=== PATIENT | female | born 2000 | race African-American/Black ===

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

== ENCOUNTER 2021-11-21 10:30 | Emergency (ER) | payer SELFPAY ==
[~2021-11-21] VITALS: Ht 165.1 cm; Wt 58.0 kg
[2021-11-21 13:40] VITALS: BP 127/94
[2021-11-21 13:41] LABS: BILIRUBIN,URINE NEGATIVE (NEG); CLARITY,URINE CLOUDY; COLOR,URINE YELLOW; NITRITE,URINE NEGATIVE (NEG); PROTEIN,URINE NEGATIVE (NEG-TRACE)
--- NOTE | 2021-11-21 13:46 | PHYS DOC ---
Past Medical History Past Medical History: Other Additional Past Medical Histor: scoliosis+ Past Surgical History: Other Additional Past Surgical Histo: back surgery for scoliosis Smoking Status: Never Smoker Alcohol Use: None Drug Use: None General Adult EDM: Chief Complaint: ABDOMINAL PAIN HPI: HPI: Patient is a 20-year-old female who presents to the emergency department today for left lower quadrant cramping that started 2 weeks ago. She rates the pain 7 out of 10. Pain is worse after eating. No treatment prior to arrival. Patient denies any nausea, vomiting, diarrhea, dysuria, urgency, flank pain, blood in her stools, vaginal bleeding or discharge. She is reporting urinary frequency. Last bowel movement was Friday and patient does have a history of constipation. Patient does have a Nexplanon and does not experience menstrual periods. Review of Systems: Review of Systems: GI: See HPI : See HPI Musculoskeletal: See HPI Heart Score: C/O Chest Pain: N/A Risk Factors: Risk Factors: DM, Current or recent (<one month) smoker, HTN, HLP, family history of CAD, obesity. Risk Scores: Score 0 - 3: 2.5% MACE over next 6 weeks - Discharge Home Score 4 - 6: 20.3% MACE over next 6 weeks - Admit for Clinical Observation Score 7 - 10: 72.7% MACE over next 6 weeks - Early Invasive Strategies Current Medications: Current Medications Medications (Trade) Dose Ordered Sig/Paras Start Time Stop Time Status Last Admin Dose Admin Dicyclomine HCl (Bentyl) 10 mg 1X ONCE 11/21/21 13:30 11/21/21 13:33 DC Sodium Chloride 1,000 ml @ 1,000 mls/hr Q1H 11/21/21 13:30 11/21/21 14:29 Allergies: Allergies: Allergies Coded Allergies Type Severity Reaction Last Updated Verified No Known Drug Allergies 05/04/17 No Physical Exam: PE: Constitutional: Well developed, well nourished, no acute distress, non-toxic appearance. [] HENT: Normocephalic, atraumatic, bilateral external ears normal, oropharynx moist, no oral exudates, nose normal. [] Eyes: PERRL, EOMI, conjunctiva normal, no discharge. [] Neck: Normal range of motion, no tenderness, supple, no stridor. [] Cardiovascular:Heart rate regular rhythm, no murmur [] Lungs & Thorax: Bilateral breath sounds clear to auscultation [] Abdomen: Bowel sounds normal, soft, no abdominal rigidity or guarding, mild tenderness noted with palpation to left lower quadrant, negative McBurney's point tenderness, negative Valencia sign, no masses, no pulsatile masses. [] Skin: Warm, dry, no erythema, no rash. [] Back: No tenderness, no CVA tenderness. [] Extremities: No tenderness, no cyanosis, no clubbing, ROM intact, no edema. [] Neurologic: Alert and oriented X 3, normal motor function, normal sensory function, no focal deficits noted. [] Psychologic: Affect normal, judgement normal, mood normal. [] Current Patient Data: Labs: Laboratory Tests Test 11/21/21 13:29 11/21/21 13:34 11/21/21 13:46 Urine Collection Type Unknown Urine Color Yellow Urine Clarity Cloudy Urine pH 6.0 Urine Specific [place] 1.025 Urine Protein Negative mg/dL Urine Glucose (UA) Negative mg/dL Urine Ketones (Stick) Negative mg/dL Urine Blood Negative Urine Nitrite Negative Urine Bilirubin Negative Urine Urobilinogen Dipstick 1.0 mg/dL Urine Leukocyte Esterase Trace Urine RBC 0 /HPF Urine WBC 1-4 /HPF Urine Squamous Epithelial Cells Many /LPF Urine Bacteria Many /HPF Urine Mucus Marked /LPF Bedside Urine HCG, Qualitative Hcg negative White Blood Count 10.7 x10^3/uL Red Blood Count 4.24 x10^6/uL Hemoglobin 13.4 g/dL Hematocrit 38.5 % Mean Corpuscular Volume 91 fL Mean Corpuscular Hemoglobin 32 pg Mean Corpuscular Hemoglobin Concent 35 g/dL Red Cell Distribution Width 12.6 % Platelet Count 363 x10^3/uL Neutrophils (%) (Auto) 65 % Lymphocytes (%) (Auto) 29 % Monocytes (%) (Auto) 5 % Eosinophils (%) (Auto) 1 % Basophils (%) (Auto) 1 % Neutrophils # (Auto) 7.0 x10^3/uL Lymphocytes # (Auto) 3.1 x10^3/uL Monocytes # (Auto) 0.5 x10^3/uL Eosinophils # (Auto) 0.1 x10^3/uL Basophils # (Auto) 0.1 x10^3/uL Sodium Level 139 mmol/L Potassium Level 3.6 mmol/L Chloride Level 106 mmol/L Carbon Dioxide Level 25 mmol/L Anion Gap 8 Blood Urea Nitrogen 9 mg/dL Creatinine 0.7 mg/dL Estimated GFR (Cockcroft-Gault) 129.1 BUN/Creatinine Ratio 13 Glucose Level 77 mg/dL Calcium Level 8.8 mg/dL Total Bilirubin 0.2 mg/dL Aspartate Amino Transf (AST/SGOT) 19 U/L Alanine Aminotransferase (ALT/SGPT) 27 U/L Alkaline Phosphatase 90 U/L Total Protein 8.0 g/dL Albumin 3.7 g/dL Albumin/Globulin Ratio 0.9 Lipase 100 U/L Current Medications Medications (Trade) Dose Ordered Sig/Paras Route PRN Reason Start Time Stop Time Status Last Admin Dose Admin Sodium Chloride 1,000 ml @ 1,000 mls/hr Q1H IV 11/21/21 13:30 11/21/21 14:29 DC 11/21/21 14:25 Dicyclomine HCl (Bentyl) 10 mg 1X ONCE IM 11/21/21 13:30 11/21/21 13:33 DC 11/21/21 14:24 Iohexol (Omnipaque 300 Mg/ml) 75 ml 1X ONCE IV 11/21/21 14:45 11/21/21 14:46 DC 11/21/21 14:56 Info (CONTRAST GIVEN -- Rx MONITORING) 1 each PRN DAILY PRN MC SEE COMMENTS 11/21/21 14:45 11/23/21 14:44 Laboratory Tests Test 11/21/21 13:34 POC Urine HCG, Qualitative Hcg negative (Negative) EKG: EKG: [] Radiology/Procedures: Radiology/Procedures: []PROCEDURE: CT ABD PELV W/ IV CONTRST ONLY Study: CT abdomen/pelvis with intravenous contrast Indication: Left lower quadrant pain. Comparison: None. Technique: Helical CT imaging performed of the abdomen and pelvis after the intravenous administration of 75 cc Omnipaque 300 contrast. Sagittal and coronal reformats were obtained. One or more of the following individualized dose reduction techniques were utilized for this examination: 1. Automated exposure control 2. Adjustment of the mA and/or kV according to patient size 3. Use of iterative reconstruction technique. Findings: Chest: No significant finding. Liver: Unremarkable. Gallbladder/Biliary Tree: No CT manifestations of cholecystitis. Within normal limits biliary tree. Pancreas: Homogeneous parenchymal attenuation. Spleen: Within normal limits for size. Adrenal Glands: Normal morphology. Kidneys/Ureters/Bladder: Essentially symmetric renal parenchymal enhancement considering streak artifact from spinal hardware. Excretion of contrast into the collecting system. No hydronephrosis. The bladder is unremarkable. There is likely a small amount of excreted contrast layering dependently within the bladder. Reproductive Organs: There appears to be fluid within the vaginal fornices, coronal image 26. Endometrial thickening. Retroverted uterus. Right ovarian cystic focus measuring up to 4.2 x 2.7 x 4.3 cm. This exhibits simple internal density. Small cystic area at the left adnexa, coronal image 27 series 4, also measuring near simple density and up to a centimeter in size. Colon: Mild constipation. Appendix: Unremarkable as seen on image 63 series 2. Small Bowel: No pathologic dilatation. Stomach: Unremarkable. Vasculature: Within normal limits. Lymph Nodes: Unremarkable. Peritoneum and Body Wall: There may be trace free fluid within the deep pelvis. Bones: Levocurvature centered at the thoracolumbar junction. Partially imaged dorsal thoracolumbar fusion construct extending down to L3. The visualized hardware is intact. Miscellaneous: None. Impression: 1. Simple density right ovarian cystic focus measuring up to 4.3 cm. Smaller left adnexal cystic area measuring up to a centimeter. Thickened endometrium and possible fluid within the vaginal fornices. The findings may all be physiologic considering patient age. If further evaluation is needed based on patient's symptoms dedicated pelvic ultrasound could be performed. 2. Mild constipation. Electronically signed by: EARNEST THOMAS MD (11/21/2021 3:21 PM) [facility] DICTATED and SIGNED BY: EARNEST THOMAS MD DATE: 11/21/21 [id number] 0 Course & Med Decision Making: Course & Med Decision Making Pertinent Labs and Imaging studies reviewed. (See chart for details) Patient's blood work was unremarkable. Urinalysis did show urinary tract infection she will be treated with an antibiotic. Patient CT scan of her abdomen and pelvis shows an ovarian cyst bilaterally and constipation but no other acute findings. Patient advised to take MiraLAX daily. She was advised to increase fluids and avoid bladder irritants. I discussed with patient all findings and diagnostic testing as well as the need to follow-up with PCP for further evaluation and treatment or return to the ER if any new or worsening symptoms. Strict return precautions were also discussed at length. Patient voiced understanding and agreement with the plan. Patient is hemodynamically stable at the time of disposition. Hakan Disclaimer: Hakan Disclaimer: This electronic medical record was generated, in whole or in part, using a voice recognition dictation system. Departure Departure Impression: Primary Impression: Urinary tract infection Qualified Codes: N30.00 - Acute cystitis without hematuria Additional Impression: Constipation Qualified Codes: K59.00 - Constipation, unspecified Disposition: HOME / SELF CARE / HOMELESS Condition: GOOD Referrals: NO PCP (PCP) Patient Instructions: Constipation, Adult, [id number], Urinary Tract Infection Additional Instructions: You were seen in the emergency department today for abdominal pain. Your urinalysis did show urinary tract infection you will be treated with an antibiotic. Please start and finish the antibiotic completely. Your blood work was unremarkable. The scan of your abdomen and pelvis did show some ovarian cyst bilaterally which are physiological but no acute findings and some constipation. Please add MiraLAX daily to help with your constipation. Increase your fluids and avoid any bladder irritants like caffeine, sugary beverages or alcohol. Follow-up with your primary care provider tomorrow regarding your ER visit. Please return to the emergency department if you develop worsening of your abdominal pain, intractable nausea or vomiting, high fevers refractory to treatment. Scripts Cephalexin (CEPHALEXIN) 500 Mg Tablet 1 TAB PO BID for 7 Days, #14 TAB 0 Refills Prov: KINSEY MEDINA APRN 11/21/21 KINSEY MEDINA APRN Nov 21, 2021 13:46
[2021-11-21 13:51] LABS: BACTERIA,URINE MANY /HPF (0-FEW); RBC,URINE 0 /HPF (0-2)
[2021-11-21 13:58] LABS: BASO # 0.1 x10^3/uL (0.0-0.2); BASO % 1 % (0-3); EOS # 0.1 x10^3/uL (0.0-0.7); EOS % 1 % (0-3); HEMATOCRIT 38.5 % (36.0-47.0); HEMOGLOBIN 13.4 g/dL (12.0-15.5); LYMPH # 3.1 x10^3/uL (1.0-4.8); LYMPH % 29 % (24-48); MEAN CORPUSCULAR HEMOGLOBIN 32 pg (25-35); MEAN CORPUSCULAR HGB CONC 35 g/dL (31-37); MEAN CORPUSCULAR VOLUME 91 fL (79-100); MONO # 0.5 x10^3/uL (0.0-1.1); MONO % 5 % (0-9); NEUT % 65 % (31-73); PLATELET COUNT 363 x10^3/uL (140-400); RED BLOOD COUNT 4.24 x10^6/uL (3.50-5.40); RED CELL DISTRIBUTION WIDTH 12.6 % (11.5-14.5); WHITE BLOOD COUNT 10.7 x10^3/uL (4.0-11.0)
[2021-11-21 14:22] LABS: CALCIUM 8.8 mg/dL (8.5-10.1); CREATININE 0.7 mg/dL (0.6-1.0); GFR 129.1; POTASSIUM 3.6 mmol/L (3.5-5.1)
[2021-11-21] MEDS: DICYCLOMINE 20 MG/2 ML VIAL. IM ONE (14:24)
[2021-11-21] MEDS: IV NORMAL SALINE 1000ML BAG 1,000 ML IV SCH (14:25)
[2021-11-21 14:27] LABS: ALBUMIN 3.7 g/dL (3.4-5.0); ALBUMIN/GLOBULIN RATIO 0.9 (1.0-1.7); TOTAL BILIRUBIN 0.2 mg/dL (0.2-1.0)
[2021-11-21] MEDS ORDERED: CONTRAST GIVEN. MC PRN (14:45)
[2021-11-21] MEDS: IOHEXOL 300 MG/ML 100ML VIAL. IV ONE (14:56)
--- NOTE | 2021-11-21 15:23 | RAD ---
Study: CT abdomen/pelvis with intravenous contrast Indication: Left lower quadrant pain. Comparison: None. Technique: Helical CT imaging performed of the abdomen and pelvis after the intravenous administratio n of 75 cc Omnipaque 300 contrast. Sagittal and coronal reformats were obtained. One or more of the following individualized dose reduction techniques were utilized for this examinat ion: 1. Automated exposure control 2. Adjustment of the mA and/or kV according to patient size 3. Use of iterative reconstruction technique. Findings: Chest: No significant finding. Liver: Unremarkable. Gallbladder/Biliary Tree: No CT manifestations of cholecystitis. Within normal limits biliary tree. Pancreas: Homogeneous parenchymal attenuation. Spleen: Within normal limits for size. Adrenal Glands: Normal morphology. Kidneys/Ureters/Bladder: Essentially symmetric renal parenchymal enhancement considering streak artif act from spinal hardware. Excretion of contrast into the collecting system. No hydronephrosis. The bl adder is unremarkable. There is likely a small amount of excreted contrast layering dependently withi n the bladder. Reproductive Organs: There appears to be fluid within the vaginal fornices, coronal image 26. Endomet rial thickening. Retroverted uterus. Right ovarian cystic focus measuring up to 4.2 x 2.7 x 4.3 cm. T his exhibits simple internal density. Small cystic area at the left adnexa, coronal image 27 series 4 , also measuring near simple density and up to a centimeter in size. Colon: Mild constipation. Appendix: Unremarkable as seen on image 63 series 2. Small Bowel: No pathologic dilatation. Stomach: Unremarkable. Vasculature: Within normal limits. Lymph Nodes: Unremarkable. Peritoneum and Body Wall: There may be trace free fluid within the deep pelvis. Bones: Levocurvature centered at the thoracolumbar junction. Partially imaged dorsal thoracolumbar fu malia construct extending down to L3. The visualized hardware is intact. Miscellaneous: None. Impression: 1. Simple density right ovarian cystic focus measuring up to 4.3 cm. Smaller left adnexal cystic are a measuring up to a centimeter. Thickened endometrium and possible fluid within the vaginal fornices. The findings may all be physiologic considering patient age. If further evaluation is needed based o n patient's symptoms dedicated pelvic ultrasound could be performed. 2. Mild constipation. Electronically signed by: EARNEST THOMAS MD (11/21/2021 3:21 PM) [facility] [place]
[2021-11-21] MEDS ORDERED: CEPH500T PO (15:35)
== END 2021-11-21 16:03 | disposition home or self-care (01) ==
LOC: ER 10:30
DX: N30.00 Acute cystitis without hematuria (principal); K59.00 Constipation, unspecified
CPT/HCPCS: 36415; 74177; 80053; 81001; 81025; 83690; 85025; 87086; 96360; 96372; 99285; J0500; J7030; Q9967